=== PATIENT | female | born 1950 | race Caucasian/White ===

== ENCOUNTER 2018-09-21 18:33 | Emergency (ER) | payer OTHER ==
[2018-09-21] MEDS: ONDANSETRON (ODT) 4 MG TAB ODT (20:29)
[2018-09-21] MEDS: ACETAMINOPHEN 325 MG TAB PO (20:30)
== END 2018-09-21 21:39 | disposition home or self-care (01) ==
LOC: E/R 18:33
DX: J40 Bronchitis, not specified as acute or chronic (principal); I10 Essential (primary) hypertension
CPT/HCPCS: 71045; 87400; 93005; 99285-25